=== PATIENT | female | born 1985 | race Two or more races ===

== ENCOUNTER 2017-01-06 05:44 | Inpatient (IN) | payer BC ==
[2017-01-06] VITALS (17 sets, daily range): BP systolic 107–142; BP diastolic 59–88
[~2017-01-06] VITALS: Ht 157.5 cm; Wt 60.0 kg
[~2017-01-06 05:44] MED LIST: CHILD ASPIRIN81 M1 PO; IBUPROFEN800 MG PO; MULTIVITAMIN1 EAC2 PO; PRENATAL ONE T1 EACH PO
[2017-01-06] MEDS ORDERED: BAYER CHEWABLE81 MG PO (06:45)
[2017-01-06 07:22] LABS: EOSINOPHIL (%) 1.5 % (0-5); EOSINOPHIL COUNT 0.2 K/uL (0-0.3); HEMATOCRIT 37.8 % (36.0-46.0); IMMATURE GRANULOCYTE (%) 0.5 % (0.0-0.7); IMMATURE GRANULOCYTE COUNT 0.1 K/uL; INSTRUMENT ABS NEUTROPHIL CT 7.3 K/uL; LYMPHOCYTE COUNT 1.9 K/uL (1.0-2.8); MCH 31.4 PG (29.0-34.0); MCHC 34.1 G/DL (30.0-36.0); MEAN PLAT.VOLUME 11.9 uM^3 (9.5-12.4); MONOCYTE (%) 11.3 % (3-12); MONOCYTE COUNT 1.2 K/uL (0-0.8); NEUTROPHIL (%) 68.6 % (45-76); NEUTROPHIL COUNT 7.3 K/uL (1.8-6.4); PLATELET COUNT 134 K/uL (156-360); RBC DIS.WIDTH-CV 13.4 % (11.8-14.6); RBC DIS.WIDTH-SD 45.3 % (39-53); RED BLOOD COUNT 4.11 M/uL (3.80-5.20); WHITE BLOOD COUNT 10.6 K/uL (4.1-10.2)
[2017-01-07 07:51] LABS: EOSINOPHIL (%) 1.4 % (0-5); EOSINOPHIL COUNT 0.2 K/uL (0-0.3); HEMATOCRIT 35.4 % (36.0-46.0); IMMATURE GRANULOCYTE (%) 0.7 % (0.0-0.7); IMMATURE GRANULOCYTE COUNT 0.1 K/uL; INSTRUMENT ABS NEUTROPHIL CT 8.6 K/uL; MCH 31.8 PG (29.0-34.0); MCHC 34.2 G/DL (30.0-36.0); MCV 92.9 FL (83-99); MEAN PLAT.VOLUME 12.1 uM^3 (9.5-12.4); MONOCYTE (%) 9.2 % (3-12); MONOCYTE COUNT 1.1 K/uL (0-0.8); NEUTROPHIL (%) 71.5 % (45-76); NEUTROPHIL COUNT 8.6 K/uL (1.8-6.4); PLATELET COUNT 140 K/uL (156-360); RBC DIS.WIDTH-CV 13.8 % (11.8-14.6); RBC DIS.WIDTH-SD 46.7 % (39-53); RED BLOOD COUNT 3.81 M/uL (3.80-5.20)
[2017-01-07] MEDS ORDERED: Tylenol Extra Streng PO (13:16)
[2017-01-07] MEDS ORDERED: IBUPROFEN800 MG PO (13:16)
== END 2017-01-07 15:04 | disposition home or self-care (01) | DRG 775 ==
LOC: LDRP-OP 05:44 → 2WEST 05:45 → LDRP-OP 02-22 13:42
PROVIDERS: Advanced Practice Midwife
PROC: 00HU33Z Insertion of Infusion Device into Spinal Canal, Percutaneous Approach (ICD-10-PCS; principal; 2017-01-06)
PROC: 10E0XZZ Delivery of Products of Conception, External Approach (ICD-10-PCS; principal; 2017-01-06)
PROC: 3E0S3CZ (ICD-10-PCS; principal; 2017-01-06)
PROC: 10907ZC Drainage of Amniotic Fluid, Therapeutic from Products of Conception, Via Natural or Artificial Opening (ICD-10-PCS; principal; 2017-01-06)
PROC: 0HQ9XZZ Repair Perineum Skin, External Approach (ICD-10-PCS; principal; 2017-01-06)
DX: O70.0 First degree perineal laceration during delivery (principal); O69.82X0 Labor and delivery complicated by other cord entanglement, without compression, not applicable or unspecified; Z3A.37 37 weeks gestation of pregnancy; Z37.0 Single live birth
CPT/HCPCS: 85025; 87480; 87510; 87660; C1755; J3010; J7120